=== PATIENT | female | born 1965 | race Caucasian/White ===

== ENCOUNTER 2023-09-17 06:52 | Inpatient (IN) | payer BC, MEDICAID ==
[2023-09-13 15:55] LABS: BASOPHILS % (AUTO) 0.7 % (0-1); EOSINOPHILS # (AUTO) 0.1 X10'3 (0-0.9); EOSINOPHILS % (AUTO) 1.4 % (0-6); HEMATOCRIT 44.6 % (35.0-45.0); HEMOGLOBIN 14.9 g/dl (12.0-16.0); LYMPHOCYTES # (AUTO) 1.2 X10'3 (1.1-4.8); LYMPHOCYTES % (AUTO) 16.4 % (21-51); MEAN CORPUSCULAR HEMOGLOBIN 29.7 PG (27.0-31.0); MEAN CORPUSCULAR HGB CONC 33.5 g/dL (33.0-36.5); MEAN CORPUSCULAR VOLUME 88.5 FL (78-98); MEAN PLATELET VOLUME 8.2 FL (7.4-10.4); MONOCYTES # (AUTO) 0.6 X10'3 (0-0.9); MONOCYTES % (AUTO) 8.4 % (2-12); NEUTROPHILS # (AUTO) 5.2 X10'3 (1.8-7.7); NEUTROPHILS % (AUTO) 73.1 % (42-75); PLATELET COUNT 269 X10'3 (140-440); RED BLOOD COUNT 5.04 X10'6 (4.20-5.60); RED CELL DISTRIBUTION WIDTH 14.6 % (11.5-14.5); WHITE BLOOD COUNT 7.2 X10'3 (4.5-11.0)
[2023-09-13 16:08] LABS: ALANINE AMINOTRANSFERASE 29 U/L (12-78); ALBUMIN 2.9 G/DL (3.4-5.0); ALBUMIN/GLOBULIN RATIO 0.7 (1.1-1.5); ALKALINE PHOSPHATASE 111 IU/L (46-116); ANION GAP 6 (8-16); ASPARTATE AMINO TRANSFERASE 14 U/L (10-37); BILIRUBIN,TOTAL 0.3 MG/DL (0.1-1.0); BLOOD UREA NITROGEN 16 MG/DL (7-18); CALCIUM 9.2 MG/DL (8.5-10.1); CHLORIDE 105 MMOL/L (99-107); CREATININE 0.64 MG/DL (0.40-0.90); GLUCOSE 109 MG/DL (70-104); POTASSIUM 3.8 MMOL/L (3.5-5.1); SODIUM 139 MMOL/L (135-145); TOTAL CARBON DIOXIDE 27.8 MMOL/L (24-32); TOTAL PROTEIN 7.2 G/DL (6.4-8.2); eGFR > 90 ML/MIN
[~2023-09-17] VITALS: Ht 160 cm; Wt 135.5 kg
[2023-09-17] VITALS (42 sets, daily range): BP systolic 129–175; BP diastolic 76–112; PULSE 58–88; RESP 11–22; TEMP 97.8–98; O2SAT 95–100
[2023-09-17] MEDS: Cefazolin 3 GM/100ML NS IVPB 100 ML IV ONE (05:30)
[~2023-09-17 06:52] MED LIST: ACET325C6 PO; ATOR40TA PO; BUPR-561 PO; CLON0.1T2 PO; DOCUMENT DATE & TIME OF BETA-BLOCKER PO ONE; FLUO40CA10 PO; FURO40TA4 PO; IBUP-2417 PO; OLME40TA18 PO; PROP20TA6 PO
[2023-09-17] MEDS: tranexamic acid 650mg tablet PO ONE (07:22)
[2023-09-17] MEDS: ringers solution, lacted 1,000 ML IV SCH ×4 (07:23→19:38)
[2023-09-17] MEDS: famotidine 20mg tablet PO ONE (07:23)
[2023-09-17] MEDS ORDERED: labetalol 20mg/4ml (5mg/ml) syringe IV PRN (07:45)
[2023-09-17] MEDS ORDERED: meperidine/PF 25mg/ml syringe IV PRN (07:45)
[2023-09-17] MEDS ORDERED: proCHLORperazine 10 MG/2 ml inj IV PRN (07:45)
[2023-09-17] MEDS ORDERED: ondansetron/PF 4mg/2ml inj IV PRN ×2 (07:45→14:00)
[2023-09-17] MEDS: vancomycin 1,500 MG in NS 300ml IV soln IV ONE (08:20)
[2023-09-17] MEDS ORDERED: ROPIVAcaine 0.5% (5mg/ml) 30ml vial ONE ×2 (08:59→13:44)
[2023-09-17] MEDS ORDERED: BUPIVACAINE/MELOXICAM 14 ML VIAL IL ONE (09:27)
[2023-09-17] MEDS ORDERED: MIDAZolam 1 MG/ML 5ML VIAL ONE (10:54)
[2023-09-17] MEDS ORDERED: fentaNYL/PF 50MCG/1 ML 2ML syringe ONE (10:54)
[2023-09-17] MEDS ORDERED: ePHEDrine 50MG/ML INJ. ONE (11:54)
[2023-09-17] MEDS: ROPIVAcaine 0.5% (5mg/ml) 30ml vial IJ ONE (12:41)
[2023-09-17] MEDS ORDERED: bisacodyl 10mg suppository rectal RC PRN (14:00)
[2023-09-17] MEDS ORDERED: diphenhydrAMINE 25mg capsule PO PRN ×2 (14:00)
[2023-09-17] MEDS ORDERED: acetaminophen 325mg tablet PO PRN (14:00)
[2023-09-17] MEDS ORDERED: magnesium hydroxide 30ml (MOM) UD suspension PO PRN (14:00)
[2023-09-17] MEDS: meperidine/PF 25mg/ml syringe IV PRN ×2 (14:34→15:43)
[2023-09-17] MEDS: morphine 2 MG/ML inj. syringe IV PRN (14:54)
[2023-09-17] MEDS: enalaprilat dihydrate 2.5mg/2ml vial IV PRN (15:10)
[2023-09-17] MEDS: morphine 4 MG/ML inj SYRINge IV PRN (15:19)
[2023-09-17] MEDS ORDERED: ceFAZolin/D5W- 1GM premix 50 ML IV SCH (16:00)
[2023-09-17] MEDS: acetaminophen 325mg tablet PO SCH (16:11)
[2023-09-17] MEDS: losartan 50mg tablet PO SCH (17:03)
[2023-09-17] MEDS: cloNIDine 0.1 mg tablet PO SCH (17:04)
[2023-09-17] MEDS: hydrALAZINE 20mg/ml inj. IV PRN (17:10)
[2023-09-17] MEDS: oxyCODONE IR 5mg (immed. release) tablet PO PRN (17:57)
[2023-09-17] MEDS: furosemide 40mg tablet PO SCH (19:52)
[2023-09-17] MEDS: potassium cl 20mEq in 1/2 NS 1,000 ML IV SCH (19:52)
[2023-09-17] MEDS: sennosides 8.6mg tablet PO SCH (19:52)
[2023-09-17] MEDS: atorvastatin 20mg tablet PO SCH (19:52)
[2023-09-17] MEDS: ceFAZolin/D5W- 1GM premix 50 ML IV SCH (19:59)
[2023-09-17] MEDS: vancomycin/NS 1 GM ADD-VANTAGE 250 ML IV SCH (20:00)
[2023-09-17] MEDS ORDERED: cloNIDine 0.1 mg tablet PO SCH (20:00)
[2023-09-17] MEDS ORDERED: losartan 50mg tablet PO SCH (21:00)
[2023-09-17] MEDS: HYDROmorphone 1 mg/ml syringe IV PRN (21:11)
[2023-09-18 02:00] VITALS: BP 147/81; PULSE 66; RESP 17; TEMP 97.8; O2SAT 100
[2023-09-18] MEDS: HYDROmorphone inj. 0.5 MG/0.5 ML DISP.SYRIN IV PRN (07:18)
[2023-09-18] MEDS ORDERED: celeCOXIB 100mg capsule PO SCH ×2 (08:00→20:00)
[2023-09-18] MEDS: FLUoxetine 20mg capsule PO SCH (08:15)
[2023-09-18] MEDS: aspirin 325mg tablet PO SCH (08:16)
[2023-09-18] MEDS: propranolol 10mg tablet PO SCH (08:23)
[2023-09-18] MEDS: oxyCODONE IR 5mg (immed. release) tablet PO PRN (08:24)
[2023-09-18 09:28] LABS: ANION GAP 6 (8-16); CHLORIDE 99 MMOL/L (99-107); POTASSIUM 3.9 MMOL/L (3.5-5.1); SODIUM 137 MMOL/L (135-145); TOTAL CARBON DIOXIDE 31.8 MMOL/L (24-32)
[2023-09-18 09:33] LABS: BASOPHILS % (AUTO) 0.2 % (0-1); EOSINOPHILS % (AUTO) 0.2 % (0-6); HEMOGLOBIN 13.3 g/dl (12.0-16.0); LYMPHOCYTES # (AUTO) 0.8 X10'3 (1.1-4.8); LYMPHOCYTES % (AUTO) 9.1 % (21-51); MEAN CORPUSCULAR HEMOGLOBIN 29.4 PG (27.0-31.0); MEAN CORPUSCULAR HGB CONC 33.4 g/dL (33.0-36.5); MEAN PLATELET VOLUME 7.9 FL (7.4-10.4); MONOCYTES # (AUTO) 0.7 X10'3 (0-0.9); MONOCYTES % (AUTO) 7.3 % (2-12); NEUTROPHILS # (AUTO) 7.4 X10'3 (1.8-7.7); NEUTROPHILS % (AUTO) 83.2 % (42-75); PLATELET COUNT 261 X10'3 (140-440); RED BLOOD COUNT 4.54 X10'6 (4.20-5.60); RED CELL DISTRIBUTION WIDTH 14.5 % (11.5-14.5); WHITE BLOOD COUNT 8.9 X10'3 (4.5-11.0)
[2023-09-18 10:53] VITALS: RESP 18; O2SAT 96
[2023-09-19] MEDS ORDERED: acetaminophen 325mg tablet PO PRN (13:15)
== END 2023-09-18 12:57 | disposition home health service (06) | DRG 470 ==
LOC: PAS 06:52 → PAS IN 06:53 → UNDOADMIN 06:53 → ORTHO 4S 19:24 → PAS IN 19:24 → UNDODISIN 09-18 12:57
PROVIDERS: ADMIT Orthopaedic Surgery; ATTEND Orthopaedic Surgery
PROC: 8E0Y0CZ Robotic Assisted Procedure of Lower Extremity, Open Approach (ICD-10-PCS; 2023-09-17)
PROC: 0SRD0J9 Replacement of Left Knee Joint with Synthetic Substitute, Cemented, Open Approach (ICD-10-PCS; principal; 2023-09-17 11:10)
DX: M17.12 Unilateral primary osteoarthritis, left knee (principal)
CPT/HCPCS: 36415; 80051; 80053; 82948; 85025; 87081; 93005; 97110; 97116; 97162; 97530; A4215; A4615; A6258; A7000; C1713; C1776; G0378; J0360; J0690; J1170; J2175; J2250; J2270; J2795; J3010; J3370; J3480; J3490; J7120